=== PATIENT | male | born 1980 | race Caucasian/White ===

== ENCOUNTER → 2024-09-08 | Outpatient (CLI) | payer BC, SELFPAY ==
--- NOTE | 2024-09-08 12:43 | ECHOD_ITS ---
Reason For Study Reason For Study: HTN Procedure This was a 2D Doppler, Color Flow transthoracic echocardiogram. Exam performed in department. Left Ventricle Normal size and thickness. The LV systolic function is normal. EF is 65 %. Normal diastololic function. Right Ventricle Normal right ventricle. Atria The left and right atria are normal. Mitral Valve Normal mitral valve. Tricuspid Valve Normal tricuspid valve. Unable to estimate RV systolic pressure due to inadequate jet, pulmonary artery pressure probably normal. Aortic Valve Trisinus/trileaflet aortic valve. Pulmonic Valve The pulmonic valve is not well visualized. Great Vessels Mildly dilated aortic root. Pericardium/Pleural No pericardial effusion. MMode/2D Measurements & Calculations LVIDd: 4.4 cm IVSd: 0.93 cm Ao root diam: 4.0 cm LVIDs: 2.9 cm LVPWd: 0.84 cm RVDd: 3.9 cm FS: 34.4 % LAV(MOD-bp): 27.6 ml LVAd ap4: 32.9 cm2 SV(MOD-sp4): 69.6 ml LAV(MOD-bp) Indexed: 14.0 ml/m2 LVLd ap4: 8.6 cm SI(MOD-sp4): 35.2 ml/m2 LAV(MOD-sp2): 33.7 ml EDV(MOD-sp4): 106.3 ml LAV(MOD-sp4): 22.2 ml EDV(sp4-el): 106.8 ml LVAs ap4: 16.5 cm2 LVLs ap4: 6.8 cm ESV(MOD-sp4): 36.7 ml ESV(sp4-el): 33.8 ml EF(MOD-sp4): 65.5 % EF(sp4-el): 68.3 % SV(sp4-el): 72.9 ml Ao sinus diam: 3.[address] Junction: 3.1 cm LA dimension(2D): 3.4 cm LA A4 area: 12.1 cm2 RA A4 area: 13.5 cm2 TAPSE: 1.6 cm Time Measurements MV dec time: 0.16 sec Doppler Measurements & Calculations MV E max javier: 59.9 cm/sec Lat Peak E' Javier: 14.8 cm/sec Med Peak E' Javier: 9.0 cm/sec MV A max javier: 52.5 cm/sec E/E' lat: 4.0 E/E' med: 6.6 MV E/A: 1.1 MV V2 max: 62.6 cm/sec MV P1/2t max javier: 63.0 cm/sec Ao V2 max: 108.7 cm/sec MV max P.6 mmHg MV P1/2t: 54.2 msec Ao max P.7 mmHg MV V2 mean: 37.6 cm/sec MV dec slope: 340.5 cm/sec2 Ao V2 mean: 78.4 cm/sec MV mean P.65 mmHg Ao mean P.8 mmHg MV V2 VTI: 23.2 cm MVA(P1/2t): 4.1 cm2 Ao V2 VTI: 23.2 cm AV (velocity ratio): 0.94 LV V1 max: 98.2 cm/sec PA V2 max: 86.8 cm/sec LV V1 max P.9 mmHg LV V1 mean P.2 mmHg LV V1 mean: 68.5 cm/sec LV V1 VTI: 21.9 cm ECHO/Echo Complete Interpretation Summary The LV systolic function is normal. EF is 65 %. Mildly dilated aortic root. Ordering Physician: Heber Sanders Referring Physician: Heber Sanders Performed By: Rinku Willingham RCS
== END | disposition home or self-care (01) ==
LOC: CVS 12:43
PROVIDERS: PCP Family Medicine; Referring Provider Internal Medicine Cardiovascular Disease; Visit Provider Internal Medicine Cardiovascular Disease
DX: I10 Essential (primary) hypertension (principal); R00.2 Palpitations
CPT/HCPCS: 93306

== ENCOUNTER → 2024-10-07 | Outpatient (CLI) | payer BC, SELFPAY ==
--- NOTE | 2024-10-07 14:52 | CT_ITS ---
PROCEDURE: CTA CHEST W/WO CONTRAST 10/07/2024 REASON FOR EXAM: DILATED AORTIC ROOT TECHNIQUE: CTA imaging of the chest with intravenous contrast. Multiplanar and multisequence images were obtained. CONTRAST: Isovue 370 VOLUME: 100 mL One or more dose reduction techniques were used (e.g., Automated exposure control, adjustment of the mA and/or kV according to patient size, use of iterative reconstruction technique). RADIATION DOSE SUMMARY: CTDlvol: 12.05 mGy DLP: 433 mGycm COMPARISON: Cardiac echo on 09/08/2024. FINDINGS: Mildly dilated aortic root just cranial to the aortic valve measuring 4.17 cm. No significant coronary artery calcifications. Normal enhancement of the main pulmonary artery and right and left pulmonary arteries. Normal enhancement of the bilateral peripheral pulmonary arteries. There is no demonstrated pulmonary embolism. Normal remaining thoracic aorta and visualized great vessels. There is no demonstrated aortic dissection. Normal heart and pericardium. Normal mediastinum. Normal hilar regions. Normal visualized trachea and bronchi. The lungs are well expanded. Normal pulmonary parenchyma. Normal pleura. Normal chest wall structures. Normal osseous structures. Normal visualized upper abdomen. CT/CTA Chest W/WO Contrast IMPRESSION: Mildly dilated aortic root just cranial to the aortic valve measuring 4.17 cm. Unremarkable remaining aorta. No pulmonary embolus or aortic dissection is seen. Reading [facility] [id number]
== END | disposition home or self-care (01) ==
LOC: CT 14:46
PROVIDERS: PCP Family Medicine; Referring Provider Physician Assistant Medical; Visit Provider Physician Assistant Medical
DX: I10 Essential (primary) hypertension (principal); I77.810 Thoracic aortic ectasia
CPT/HCPCS: 71275; Q9967